=== PATIENT | female | born 1985 | race Caucasian/White ===

== ENCOUNTER 2024-08-08 09:03 | Outpatient (CLI) | payer OTHER, BC, SELFPAY ==
--- NOTE | 2024-08-08 09:15 | CRLHL7_ITS ---
For Patients: As a result of the Century Cures Act, medical imaging exams and procedure reports are released immediately into your electronic medical record. You may view this report before your referring provider. If you have questions, please contact your health care provider. Indication: Lumbar radiculopathy Technique: Noncontrast sagittal and axial T1, T2, and sagittal STIR sequences are provided. Comparison: None Findings: There are 5 lumbar-type vertebral bodies. No aggressive osseous lesions. No fractures. No prevertebral or paraspinal edema. Disc desiccation at L3-4 through L5-S1. Moderate interspace narrowing at L4-5. Modic type 1 and type 2 endplate degenerative changes at L4-5. Benign intraosseous hemangioma in the S1 vertebral body. The conus medullaris is normal in signal and location. T12-L1: The disc and facet joints are negative. No significant spinal canal stenosis or neural foramen narrowing. L1-2: The disc and facet joints are negative. No significant spinal canal stenosis or neural foraminal narrowing. L2-3: The disc is normal. Mild facet arthrosis. No significant spinal canal stenosis or neural foraminal narrowing. L3-4: Disc desiccation. Mild disc bulge and central disc protrusion indents the thecal sac and results in mild spinal canal narrowing. No neural foramen narrowing. L4-5: Moderate interspace narrowing. Mild disc bulge. Endplate osteophytic ridging. [id number]-[id number] bilateral subarticular recess narrowing. No neural foraminal narrowing. L5-S1: Disc desiccation. Mild disc bulge with small central annular fissure. Mild facet arthrosis. No significant spinal canal stenosis or neural foramen narrowing. Impression: 1. Normal alignment. No acute osseous or ligamentous abnormality. Disc desiccation at L3-4 through L5-S1. Moderate disc space narrowing at L4-5. 2. At L4-5 there is [id number] bilateral subarticular recess narrowing. 3. At L3-4 there is mild spinal canal narrowing. 4. No significant neural foramen narrowing. Dictated by Francis Freedman MD @ 08/08/2024 2:05:57 PM (Electronically Signed)
== END 2024-08-08 09:04 | disposition home or self-care (01) ==
PROVIDERS: PCP Nurse Practitioner Family; Visit Provider Nurse Practitioner Family
DX: M54.16 Radiculopathy, lumbar region (principal); M51.26 Other intervertebral disc displacement, lumbar region
CPT/HCPCS: 72148

== ENCOUNTER 2024-10-30 09:15 | Outpatient (RCR) | payer OTHER, BC, SELFPAY ==
--- NOTE | 2024-10-30 10:01 | PT.OPDNX ---
[facility] Daily Note [facility] Daily Note Start: 09/10/24 10:31 Freq: Status: Active Protocol: Document 10/30/24 07:32 CRP (Rec: 10/30/24 10:01 CRP [id number]) E-signed By Darryl Philip, PT PT OP Daily Progress Note Visit Information Note Type Daily Note,Discharge Note Visit Number [id number] Insurance Information Insurance Name Other; See Comments Insurance Information/Comments [employer] [facility] Medical Diagnosis LBP with radiculopathy Referring MD Dr Perry Subjective Subjective Pt reports she is doing really well. No pain to speak of. She feels ready to return to work without restrictions. Pt agrees to DC PT after today's appt. Pain Comments 0/10 Objective Other/Pertinent Objective 10-30-24 Posture: WNL - no noted guarding transitioning from one posture to another Trunk ROM WNL in all planes Lift mechanics - Shows good control without pain Hip ROM WNL bilat SLR negative bilat MMT: LE strength WNL without pain. Segmental testing: Shows good mobility without pain Patient Instructed in Risks/Benefits Yes Therapeutic Exercise Therapeutic Exercise Minutes (minutes) 27 Therapeutic Exercise: To Restore Access Code: [email or web address] Functional Status URL: [email or web address] [employer]/ Date: 10/30/2024 Prepared by: Jaosn Philip Exercises - TM 2.6 mph x 3 min - Lying Prone - 3-4 x daily - 7 x weekly - 3 sets - 10 reps - 2 min to 1min hold - Static Prone on Elbows - 3- 4 x daily - 7 x weekly - 1 sets - 10 reps - 5 hold - Prone Press Up - 3-4 x daily - 7 x weekly - 1 sets - 10 reps - Supine 90/90 Sciatic Nerve Bishop with Knee Flexion/ Extension - 2 x daily - 7 x weekly - 2 sets - 10 reps - Sidelying Thoracic Rotation - 2 x daily - 7 x weekly - 1 sets - 5 reps - 5-10 hold - Supine Transversus Abdominis Bracing with Leg Extension - 1 x daily - 7 x weekly - 1 sets - 5 reps - Shoulder extension with resistance - Neutral - 1 x daily - 4-5 x weekly - 3 sets - 10 reps - Standing Shoulder Row with Anchored Resistance - 1 x daily - 2-3 x weekly - 3 sets - 10 reps - Squat - 1 x daily - 2-3 x weekly - 3 sets - 10 reps - Standing Bicep Curls Supinated with Dumbbells - 1 x daily - 2-3 x weekly - 3 sets - 10 reps Treatment Minutes Timed Code Treatment Minutes 27 Total Treatment Time 27 Billing Units Therapeutic Exercise Units 2 Assessment/Impression Assessment/Impression Pt has done very well with PT. Pt scored 6% on Modified Oswestry. Pt is pain free and shows ROM and strength WNL without pain. Pt has met goals of PT and is ready to DC PT at this time. Plan of Care Physical Therapy Goals 1. Pt will be independent with HEP in 6 weeks. 2. 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 3. Pt will work full shift with 80% decrease in pain in 12 weeks. Daily Plan of Care Discharge Discharge Note Discharge Summary Pt has met goals of PT. She has scored 6% on Oswestry, shows full trunk ROM without pain, shows good control on functional lifts without pain and has a HEP to continue to work on at home. Pt is ready to return to work. DC PT at this time. Date of Last Visit for Therapy 10/30/24 Pain Level at Discharge 0/10 Recommendations/Reason for Discharge Met All Therapy Goals
== END 2025-02-27 23:59 | disposition home or self-care (01) ==
PROVIDERS: PCP Nurse Practitioner Family; Visit Provider Family Medicine
DX: M54.50 Low back pain, unspecified (principal); M54.16 Radiculopathy, lumbar region; Z51.89 Encounter for other specified aftercare
CPT/HCPCS: 97110; 97140; 97162